=== PATIENT | male | born 1990 | race Two or more races ===

== ENCOUNTER 2016-12-04 20:12 | Emergency (ER) | payer OTHER ==
[~2016-12-04] VITALS: Ht 167.6 cm; Wt 65.8 kg
--- NOTE | 2016-12-04 20:12 | NUR ---
BIB [facility] WITH [employer] [place] [address] [facility] PER [employer] PT VERBALIZED HE "TOOK 100 TAB WELLBUTRIN " BS IN FIELD 133. PLACED ON MONITOR. AWAITING MD ORDER
--- NOTE | 2016-12-04 20:27 | NUR ---
OMAR WILCOX AT BEDSIDE FOR EVAL.
--- NOTE | 2016-12-04 20:38 | NUR ---
SEA KAYAKING GUIDE AT BEDSIDE FOR BLOOD DRAW.
[2016-12-04 20:42] LABS: BASOPHILS # (AUTO) 0.3 /CMM (0.0-0.2); BASOPHILS % (AUTO) 2.7 % (0.0-2.0); EOSINOPHILS # (AUTO) 0.1 /CMM (0.0-0.7); EOSINOPHILS % (AUTO) 0.7 % (0.0-6.0); HEMATOCRIT 41 % (39-51); HEMOGLOBIN 13.9 g/dL (13.5-17.5); LYMPHOCYTES # (AUTO) 3.1 /CMM (0.8-4.8); LYMPHOCYTES % (AUTO) 25.5 % (20.0-44.0); MEAN CORPUSCULAR HEMOGLOBIN 33 PG (26.0-33.0); MEAN CORPUSCULAR HGB CONC 34 g/dl (31.0-36.0); MEAN CORPUSCULAR VOLUME 95 fL (80-96); MONOCYTES # (AUTO) 0.9 /CMM (0.1-1.30); MONOCYTES % (AUTO) 7.6 % (2.0-12.0); NEUTROPHILS # (AUTO) 7.8 /CMM (1.8-8.9); NEUTROPHILS % (AUTO) 63.5 % (43.0-81.0); PLATELET COUNT (AUTO) 198 /CMM (150-450); RDW COEFFICIENT OF VARIATION 12.3 (11.5-15.0); RED BLOOD CELL COUNT(AUTO) 4.26 MIL/uL (4.5-6.0); WHITE BLOOD COUNT (AUTO) 12.2 K/uL (4.3-11.0)
[2016-12-04 20:53] LABS: CALCIUM, SERUM 8.8 mg/dL (8.5-10.1); CARBON DIOXIDE 23 mmol/L (21-32); CHLORIDE 109 mmol/L (98-107); GLUCOSE 100 mg/dL (74-106); POTASSIUM 3.8 mmol/L (3.5-5.1); SODIUM SERUM 143 mmol/L (136-145); UREA NITROGEN, BLOOD 28 mg/dL (7-18)
[2016-12-04 20:59] LABS: ALANINE AMINOTRANSFERASE 22 U/L (12-78); ALBUMIN 4.1 g/dL (3.4-5.0); ALCOHOL, BLOOD < 3 mg/dL (0-0); ALKALINE PHOSPHATASE 64 U/L (46-116); ASPARTATE AMINOTRANSFERASE 38 U/L (15-37); BILIRUBIN,DIRECT 0.1 mg/dL (0.0-0.2); BILIRUBIN,TOTAL 0.7 mg/dL (0.2-1.0); TOTAL PROTEIN, SERUM 7.3 g/dL (6.4-8.2)
[2016-12-04] MEDS ORDERED: IV NS 0.9% 1,000 ML BAG IV ONE (21:00)
[2016-12-04 21:01] LABS: ACETAMINOPHEN < 2 ug/ml (10-30); SALICYLATE < 2.8 mg/dL (2.8-20.0)
[2016-12-04] MEDS ORDERED: IV SET PRIMARY 1 EA INFUS.SET MC ONE (21:39)
[2016-12-04] MEDS ORDERED: IV NS 0.9% 1,000 ML ONE (21:39)
[2016-12-04 22:03] LABS: APPEARANCE,URINE CLEAR (CLEAR); BILIRUBIN,URINE NEGATIVE (NEGATIVE); BLOOD, URINE NEGATIVE Ery/uL (NEGATIVE); COLOR,URINE YELLOW (YELLOW); KETONES,URINE TRACE (NEGATIVE); LEUKOCYTE ESTERASE ,URINE NEGATIVE (NEGATIVE); NITRITE, URINE NEGATIVE (NEGATIVE); PH,URINE 5.5 (5.0-8.0); PROTEIN,URINE NEGATIVE (NEGATIVE); UGLUCOSE NEGATIVE (NEGATIVE); UROBILINOGEN,URINE 0.2 EU/dL (0.2)
[2016-12-04 22:05] LABS: RBC,URINE NONE SEEN /HPF (0-2); WBC,URINE 0-2 /HPF (0-3)
[2016-12-04 22:06] LABS: BACTERIA,URINE None seen /HPF (None Seen); SQUAMOUS EPITHELIAL CELL,UR Rare /HPF (None Seen)
--- NOTE | 2016-12-05 | NUR ---
REPORT REC'D FROM SHERRY CHRISTENSEN FOR [facility].
--- NOTE | 2016-12-05 00:57 | NUR ---
PT IS AWAKE AND STATED THAT HE WAS HUNGRY. PT STATED: "[address] OWES ME $100K CAUSE I CLEAN THEIR TRASH". WILL CONTINUE TO MONITOR THE PT.
--- NOTE | 2016-12-05 02:30 | NUR ---
PT APPEARS TO BE RESTING COMFORTABLY WITH NO S/S OF PAIN OR DISTRESS. VSS
--- NOTE | 2016-12-05 04:52 | NUR ---
PT IS AA&O X4. PT WANTS TO LEAVE. PT IS ABLE TO AMBULATE WITH A STEADY GAIT. PT REC'D PANTS AND A TOP. Patient discharged to home in stable condition. Written and verbal after care instructions given. Patient verbalizes understanding of instruction. NO IV NOTED. VSS.
[2016-12-05 04:56] VITALS: BP 122/77
== END 2016-12-05 04:57 | disposition home or self-care (01) ==
LOC: ER 20:14
DX: F15.10 Other stimulant abuse, uncomplicated (principal); F23 Brief psychotic disorder; E86.0 Dehydration; R00.0 Tachycardia, unspecified
CPT/HCPCS: 36415; 80048; 80076; 80305; 80329; 81001; 85025; 93005; 96360; 99285; A4606; G0480 ×2; J7030; Z7610; 81000-TC